=== PATIENT | male | born 1935 | race Caucasian/White ===

== ENCOUNTER 2017-05-11 08:41 | Emergency (ER) | payer MEDICARE ==
[~2017-05-11 08:41] MED LIST: ALUM5LIQ PO; CENTTAB20 PO; CINN500C7 PO; GABA300C3 PO; GLUC250C5 PO; KLOR20TA6 PO; LUTE20CA PO; MEVA40TA6 PO; OMEG100037 PO; PROT40TA PO; PSEU1LIQ2 PO; SERT-132 PO; TURMCAP PO
[2017-05-11 08:43] VITALS: BP 193/86; PULSE 78; TEMP 97.7; O2SAT 93
[2017-05-11 08:58] VITALS: BP 176/91; PULSE 79; RESP 18; O2SAT 96
--- NOTE | 2017-05-11 09:27 | PD ---
HPI Chief Complaint: Pain: Acute or Chronic Time Seen by Provider: 09:03 Travel History International Travel<30 days: No Contact w/Intl Traveler<30days: No Traveled to known affect area: No History of Present Illness HPI This patient is brought in by his daughter. He has significant arthritis in both knees as well as back. He gets around with a rolling walker. Yesterday around 2:00 he says that he just felt some unsteadiness. He felt like his legs were weaker than usual. Symptoms were bilateral and symmetric. No arm complaints. He did not have syncope or presyncopal symptoms or chest pain or dyspnea. No headache or head injury. He takes a baby aspirin daily but no blood thinners. Symptoms severity is moderate. Duration 19 hours. He has chronic urinary incontinence and wears depends. No alleviating factors. 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) Pacemaker: No Other Surgery: Yes (3CM STONE REMOVED FROM BLADDER / COLONSCOPY 2003) Social History Alcohol Use: Yes (GIN every so often) Tobacco Use: No Substance Use: No Allergies-Medications (Allergen,Severity, Reaction): Coded Allergies: No Known Allergies (Verified , 02/11/14) Reported Meds & Prescriptions Reported Meds & Active Scripts Active Review of Systems General / Constitutional: No: Fever Eyes: No: Visual changes HENT: No: Headaches Cardiovascular: No: Chest Pain or Discomfort Respiratory: No: Shortness of Breath Gastrointestinal: No: Abdominal Pain Genitourinary: No: Dysuria Musculoskeletal: Positive: Weakness, No: Pain Skin: No Rash Neurologic: Positive: Weakness, Ataxia Psychiatric: No: Depression Endocrine: No: Polydipsia Hematologic/Lymphatic: No: Easy Bruising Physical Exam Narrative GENERAL: Well-nourished, well-developed patient in no apparent distress. SKIN: Focused skin assessment reveals no rash and nodules. Skin is Warm and dry. HEAD: Atraumatic. Normocephalic. EYES: Pupils equal and round. No scleral icterus. No injection or drainage. ENT: No nasal bleeding or discharge. Mucous membranes pink and moist. NECK: Trachea midline. No JVD. CARDIOVASCULAR: Regular rate and rhythm. No murmur appreciated. RESPIRATORY: No accessory muscle use. Clear to auscultation. Breath sounds equal bilaterally. GASTROINTESTINAL: Abdomen soft, non-tender, nondistended. Hepatic and splenic margins not palpable. MUSCULOSKELETAL: No obvious deformities. No clubbing. No cyanosis. No edema. NEUROLOGICAL: Awake and alert. No obvious cranial nerve deficits. Motor grossly within normal limits. Normal speech. PSYCHIATRIC: Appropriate mood and affect; insight and judgment normal. Data Data Last Documented VS Vital Signs Date Time Temp Pulse Resp B/P Pulse Ox O2 Delivery O2 Flow Rate FiO2 05/11/17 08:59 76 18 05/11/17 08:58 176/91 96 Room Air 05/11/17 08:43 97.7 Orders Iv Access Insert/Monitor (05/11/17 09:21) Complete Blood Count With Diff (05/11/17 09:21) Basic Metabolic Panel (Bmp) (05/11/17 09:21) Urinalysis - C+S If Indicated (05/11/17 09:21) Labs Laboratory Tests Test 05/11/17 05/11/17 05/11/17 09:35 09:39 10:24 Sodium Level 138 MEQ/L Potassium Level 3.9 MEQ/L Chloride Level 105 MEQ/L Carbon Dioxide Level 25.6 MEQ/L Anion Gap 7 MEQ/L Blood Urea Nitrogen 15 MG/DL Creatinine 0.81 MG/DL Estimat Glomerular Filtration 91 ML/MIN Rate Random Glucose 100 MG/DL Calcium Level 9.1 MG/DL White Blood Count 5.9 TH/MM3 Red Blood Count 4.09 MIL/MM3 Hemoglobin 13.8 GM/DL Hematocrit 38.7 % Mean Corpuscular Volume 94.8 FL Mean Corpuscular Hemoglobin 33.7 PG Mean Corpuscular Hemoglobin 35.6 % Concent Red Cell Distribution Width 12.6 % Platelet Count 137 TH/MM3 Mean Platelet Volume 8.6 FL Neutrophils (%) (Auto) 63.7 % Lymphocytes (%) (Auto) 26.1 % Monocytes (%) (Auto) 8.5 % Eosinophils (%) (Auto) 1.3 % Basophils (%) (Auto) 0.4 % Neutrophils # (Auto) 3.7 TH/MM3 Lymphocytes # (Auto) 1.5 TH/MM3 Monocytes # (Auto) 0.5 TH/MM3 Eosinophils # (Auto) 0.1 TH/MM3 Basophils # (Auto) 0.0 TH/MM3 CBC Comment DIFF FINAL Differential Comment Urine Color YELLOW Urine Turbidity CLEAR Urine pH 5.5 Urine Specific [place] 1.014 Urine Protein NEG mg/dL Urine Glucose (UA) NEG mg/dL Urine Ketones NEG mg/dL Urine Occult Blood SMALL Urine Nitrite NEG Urine Bilirubin NEG Urine Urobilinogen LESS THAN 2.0 MG/DL Urine Leukocyte Esterase TRACE Urine RBC 1 /hpf Urine WBC 2 /hpf Urine Squamous Epithelial <1 /hpf Cells Microscopic Urinalysis Comment CULT NOT INDICATED MDM Medical Decision Making Medical Screen Exam Complete: Yes Emergency Medical Condition: Yes Medical Record Reviewed: Yes Differential Diagnosis CVA, myalgias, peripheral neuropathy Narrative Course I have reviewed the patient's electronic medical record. Patient has no neurologic deficit to objective exam He reports history of peripheral neuropathy in the feet of unknown etiology but he does have sensation to sharp touch there IV placed CBC is normal Metabolic profile is normal Urinalysis is clean I watched him ambulate with a walker and he did fairly well. His daughter agrees this is pretty much baseline He was able to get around He does lean on it fairly heavily but that usual He has had physical therapy in the past and he says it didn't help he doesn't seem interested in trying it again I had a discussion with them regarding that if it's approaching time for assisted living at he will need to discuss with his primary physician He is stable for outpatient follow-up no His symptoms were bilateral and symmetric and he did not have a CVA Diagnosis Primary Impression: Leg weakness, bilateral Additional Impression: Ataxia Additional Instructions: The patient was advised to follow up with their physician and return if they worsen. Med/Other Pt SpecificInfo: Other Disposition: 01 DISCHARGE HOME Condition: Stable Jasvir Goodson MD May 11, 2017 09:27
[2017-05-11 09:57] LABS: AUTOMATED NEUTROPHIL # 3.7 TH/MM3 (1.8-7.7); BASOPHIL % 0.4 % (0.0-2.0); EOSINOPHIL # 0.1 TH/MM3 (0-0.4); EOSINOPHIL % 1.3 % (0.0-4.0); HEMATOCRIT 38.7 % (39.0-51.0); HEMO FLAGS DIFF FINAL; LYMPH % 26.1 % (9.0-44.0); LYMPHOCYTE # 1.5 TH/MM3 (1.0-4.8); MEAN CELL VOLUME 94.8 FL (80.0-100.0); MEAN CORPUSCULAR HEMOGLOBIN 33.7 PG (27.0-34.0); MEAN CORPUSCULAR HGB CONC 35.6 % (32.0-36.0); MONO % 8.5 % (0.0-8.0); NEUT % 63.7 % (16.0-70.0); PLATELET COUNT 137 TH/MM3 (150-450); RED BLOOD COUNT 4.09 MIL/MM3 (4.50-5.90); RED CELL DISTRIBUTION WIDTH 12.6 % (11.6-17.2); WHITE BLOOD COUNT 5.9 TH/MM3 (4.0-11.0)
[2017-05-11 10:19] LABS: BICARBONATE 25.6 MEQ/L (21.0-32.0); POTASSIUM 3.9 MEQ/L (3.5-5.1)
[2017-05-11 10:42] LABS: BLOOD, URINE SMALL (NEG); COMMENT (UR) CULT NOT INDICATED; CULTURE IF INDICATED CULT NOT INDICATED; GLUCOSE,URINE NEG (NEG); KETONE, URINE NEG (NEG); NITRITE,URINE NEG (NEG); PH, URINE 5.5 (5.0-8.5); SQUAMOUS EPITHELIAL CELL URINE <1 /hpf (0-5); URINE COLOR YELLOW (YELLW/STRAW)
== END 2017-05-11 12:27 | disposition home or self-care (01) ==
LOC: NEPC 08:41
DX: M62.81 Muscle weakness (generalized) (principal); R27.0 Ataxia, unspecified; G62.9 Polyneuropathy, unspecified; M13.862 Other specified arthritis, left knee; M13.861 Other specified arthritis, right knee; M13.88 Other specified arthritis, other site; F32.9 Major depressive disorder, single episode, unspecified; I10 Essential (primary) hypertension; E78.00 Pure hypercholesterolemia, unspecified
CPT/HCPCS: 80048; 81001; 85025; 99283